=== PATIENT | female | born 1965 | race Asian ===

== ENCOUNTER 2016-10-02 07:53 | Day surgery (SDC) | payer BC ==
[2016-10-02] MEDS ORDERED: LACTATED RINGERS 1,000 ML IV ONE ×2 (08:18→11:00)
[2016-10-02] MEDS ORDERED: PROPOFOL 200 MG/20 ML VIAL IVP ONE (10:15)
[2016-10-02] MEDS ORDERED: MIDAZOLAM 2 MG/2 ML VIAL IVP ONE (10:15)
[2016-10-02] MEDS ORDERED: fentaNYL 250 MCG/5 ML VIAL IVP ONE (10:15)
== END 2016-10-02 07:54 | disposition home or self-care (01) ==
PROC: 0DJD8ZZ Inspection of Lower Intestinal Tract, Via Natural or Artificial Opening Endoscopic (ICD-10-PCS; principal; 2016-10-02 09:15)
DX: Z12.11 Encounter for screening for malignant neoplasm of colon (principal); Z80.0 Family history of malignant neoplasm of digestive organs; K57.30 Diverticulosis of large intestine without perforation or abscess without bleeding; K64.4 Residual hemorrhoidal skin tags; K64.8 Other hemorrhoids; Z88.0 Allergy status to penicillin; Z82.49 Family history of ischemic heart disease and other diseases of the circulatory system
CPT/HCPCS: 45378; 81025; J3010; J7120

== ENCOUNTER 2020-01-05 16:05 | Outpatient (CLI) | payer BC | END 2020-01-05 16:06 | disposition home or self-care (01) | LOC: LAB 16:05 | PROVIDERS: ATTEND Internal Medicine Gastroenterology | DX: Z01.818 Encounter for other preprocedural examination (principal); Z11.59 Encounter for screening for other viral diseases | CPT/HCPCS: 81599 ==

== ENCOUNTER 2020-06-22 20:00 | Outpatient (CLI) | payer BC | END 2020-06-22 20:01 | disposition home or self-care (01) | LOC: COV 20:00 | PROVIDERS: ATTEND Family Medicine | DX: R09.89 Other specified symptoms and signs involving the circulatory and respiratory systems (principal); Z20.828 Contact with and (suspected) exposure to other viral communicable diseases ==

== ENCOUNTER 2022-08-07 16:36 | Outpatient (CLI) | payer OTHER | END 2022-08-07 16:37 | disposition home or self-care (01) | LOC: LAB 16:36 | PROVIDERS: ATTEND Pathology Anatomic Pathology & Clinical Pathology | DX: S46.012D Strain of muscle(s) and tendon(s) of the rotator cuff of left shoulder, subsequent encounter (principal); Z20.822 Contact with and (suspected) exposure to COVID-19 ==

== ENCOUNTER 2023-09-03 08:30 | Outpatient (CLI) | payer BC, OTHER | END 2023-09-03 08:45 | disposition home or self-care (01) | LOC: LAB.N 08:30 | PROVIDERS: ATTEND Family Medicine | DX: R30.0 Dysuria (principal) | CPT/HCPCS: 87086; 87181 ==